=== PATIENT | male | born 1965 | race Caucasian/White ===

== ENCOUNTER 2016-05-25 16:09 | Emergency (ER) | payer SELFPAY ==
[~2016-05-25] VITALS: Ht 170.2 cm; Wt 90.7 kg
[2016-05-25 16:17] VITALS: BP 154/90
--- NOTE | 2016-05-25 16:21 | NUR ---
Dr. Currie evaluating patient in triage room.
--- NOTE | 2016-05-25 16:23 | NUR ---
Patient ambulated to bed 04.
--- NOTE | 2016-05-25 16:33 | NUR ---
51/M TO ED WITH C/O HIGH BLOOD PRESSURE TAKEN AT [facility]. DENIES PAIN, DENIES ALL OTHER MEDICAL COMPLAINTS. NO HEADACHE OR DIZZINESS. HR EVEN AND REGULAR. LUNGS CLEAR BILAT. AAOX4. VSS. NO SIGNS OF DISTRESS.
[2016-05-25] MEDS ORDERED: HYDROCHLOROTHIAZIDE 25 MG TAB PO STA (16:52)
--- NOTE | 2016-05-25 17:30 | NUR ---
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
[2016-05-25] MEDS ORDERED: cloNIDine 0.1 MG TAB PO ONE (17:45)
[2016-05-25] MEDS ORDERED: cloNIDine 0.1 MG TAB ONE (17:48)
[2016-05-25 18:07] VITALS: BP 153/105
--- NOTE | 2016-05-25 18:07 | NUR ---
Patient discharged with v/s stable. Written and verbal after care instructions given and explained. Patient alert, oriented and verbalized understanding of instructions. Ambulatory with steady gait. All questions addressed prior to discharge. ID band removed. Patient advised to follow up with PMD. Rx of hydrochlorothiazide given. Patient educated on indication of medication including possible reaction and side effects. Opportunity to ask questions provided and answered.
[2016-05-26] MEDS ORDERED: HYDROCHLOROTHIAZIDE 25 MG TAB PO SCH (09:00)
== END 2016-05-25 18:07 | disposition home or self-care (01) ==
LOC: MED 16:09
DX: I10 Essential (primary) hypertension (principal); F17.200 Nicotine dependence, unspecified, uncomplicated